=== PATIENT | female | born 1965 | race Asian ===

== ENCOUNTER → 2016-10-27 | Outpatient (CLI) | payer OTHER | LOC: BRMIMAGING 11:31 | PROVIDERS: ATTEND Family Medicine | DX: Z12.31 Encounter for screening mammogram for malignant neoplasm of breast (principal); D25.9 Leiomyoma of uterus, unspecified | CPT/HCPCS: 76856-PO; G0202 ==

== ENCOUNTER → 2017-11-14 | Outpatient (CLI) | payer OTHER | LOC: BRMIMAGING 07:38 | PROVIDERS: ATTEND Family Medicine | DX: Z12.31 Encounter for screening mammogram for malignant neoplasm of breast (principal) ==